=== PATIENT | male | born 2000 | race Native Hawaiian/Other Pacific Islander ===

== ENCOUNTER 2019-11-12 02:05 | Emergency (ER) | payer BC, OTHER ==
[2019-11-12] MEDS ORDERED: LIDOCAINE 1% INJ 10MG/ML (20 ML MDV) SQ STA (02:11)
[2019-11-12 02:15] VITALS: BP 132/83; PULSE 96; RESP 18; TEMP 97.5
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
== END 2019-11-12 02:53 | disposition home or self-care (01) ==
LOC: EC 02:05
DX: S01.112A Laceration without foreign body of left eyelid and periocular area, initial encounter (principal); W20.8XXA Other cause of strike by thrown, projected or falling object, initial encounter
CPT/HCPCS: 99283; 12011; J2001